=== PATIENT | male | born 1990 | race Caucasian/White ===

== ENCOUNTER 2023-04-20 22:11 | Emergency (ER) | payer BC, SELFPAY ==
[2023-04-20 22:16] VITALS: BP 149/98; PULSE 99; RESP 18; TEMP 36.6; O2SAT 100; BMI 37.1
[2023-04-20 22:30] VITALS: O2SAT 97
--- NOTE | 2023-04-20 22:35 | ED_ITS ---
HPI - Back Pain/Injury General Chief Complaint: Back Injury/Pain Stated Complaint: lower back pain, spasms Time Seen by Provider: 04/20/23 22:12 History of Present Illness HPI Narrative: This 32-year-old male comes in with pain in his mid to low back. He states that he has pain in this area for the past couple weeks and does not report any particular strenuous activity or injury event. However he has been doing some weightlifting and though there was no particular event it may have triggered some muscle spasm in his back. He has seen a chiropractor and is currently taking diclofenac and Flexeril. Today he was sitting on the toilet when he began to have severe spasms in this area. He does not report any pain radiating down either leg. Related Data Home Medications Medication Instructions Recorded Confirmed cyclobenzaprine 5 mg tablet PO 04/20/23 diclofenac sodium 75 mg 75 mg PO BID PRN 04/20/23 04/20/23 tablet,delayed release pantoprazole 20 mg tablet,delayed 20 mg PO 04/20/23 release sertraline 50 mg tablet 50 mg PO DAILY 04/20/23 04/20/23 Allergies Allergy/AdvReac Type Severity Reaction Status Date / Time cefaclor [From [facility]] AdvReac Mild Hives Verified 04/20/23 22:19 Review of Systems Status of ROS: Reports: 10 or more systems reviewed and unremarkable except as noted in History and below Narrative: Constitutional: No fevers, no weight gain or loss. Eyes: No discharge. No vision changes. HENT: No congestion, no sore throat, no ear pain. Cardiovascular: No chest pain, no palpitations. Respiratory: No shortness of breath, no wheezes, no cough. Gastrointestinal: No abdominal pain, no vomiting, no diarrhea. Genitourinary: No dysuria, no hematuria. Musculoskeletal: Mid to low back spasms. Skin: No rashes, no pruritis. Neurological: No dizziness, weakness, sensory change, speech change. Endo/Heme/Allergies: No bruising or bleeding. No polydipsia. Pysch: no suicidality, no anxiety, no insomnia. All other systems reviewed and are negative. [facility] Medical History (Updated 04/20/23 @ 22:42 by Addy James MD) ADONIS (obstructive sleep apnea) ?G47.33 - Obstructive sleep apnea (adult) (pediatric) (ICD-10) Depression ?F32.A - Depression, unspecified (ICD-10) Social History Smoking Status: Former smoker How often do you have a drink containing alcohol: never AUDIT-C Alcohol total score: 0 Non-prescribed substance use: denies use Exam Narrative: Exam Narrative: Constitutional: Well-developed, well-nourished, no acute distress. HEENT: Normocephalic, atraumatic. Neck: Normal range of motion. Nontender. Supple. Heart: Regular. No murmurs. Normal rate. Intact distal pulses. Lungs: Clear to auscultation. No chest discomfort. No wheezes, rhonchi, or rales. Abdomen: Normal bowel sounds. Nontender. No rebound tenderness. Genitalia: Deferred. Back: The patient has frequent spasms of intense pain in his mid to low back. Extremities: Normal range of motion. No injury. Skin: Intact. No rash. Warm. No erythema or pallor. Neurologic: No altered sensation. No weakness. Alert and oriented. Psychiatric: No suicidality. No anxiety or depression. No insomnia. Nursing notes and vitals signs are reviewed. Const: Vital Signs, click to edit/add: Vital Signs - 24 hr 04/20/23 22:16 Temperature 97.8 F Pulse Rate [Pulse Oximeter] 99 Respiratory Rate 18 Blood Pressure [Ri ght Upper Arm] 149/98 H Pulse Oximetry 100 Oxygen Delivery Me thod Room Air Course Vital Signs Vital signs: Initial Vital Signs Temperature 97.8 F 04/20/23 22:16 Temperature Source Temporal Artery Scan 04/20/23 22:16 Pulse Rate 99 04/20/23 22:16 Respiratory Rate 18 04/20/23 22:16 Blood Pressure 149/98 H 04/20/23 22:16 Blood Pressure Mean 115 H 04/20/23 22:16 Blood Pressure Position Sitting 04/20/23 22:16 Pulse Oximetry 100 04/20/23 22:16 Oxygen Delivery Method Room Air 04/20/23 22:16 Vital Signs Temperature 97.8 F 04/20/23 22:16 Pulse Rate 99 04/20/23 22:16 Respiratory Rate 18 04/20/23 22:16 Blood Pressure 149/98 H 04/20/23 22:16 Pulse Oximetry 100 04/20/23 22:16 Oxygen Delivery Method Room Air 04/20/23 22:16 Temperature 97.8 F 04/20/23 22:16 Pulse Rate 99 04/20/23 22:16 Respiratory Rate 18 04/20/23 22:16 Blood Pressure 149/98 H 04/20/23 22:16 Pulse Oximetry 100 04/20/23 22:16 Oxygen Delivery Method Room Air 04/20/23 22:16 MDM - Back Pain/Injury MDM Narrative Medical decision making narrative: This patient comes in with back spasms causing him to his shout out in pain. He did not have any recent injury event or strenuous activity that would necessitate imaging studies. This patient is seeing a chiropractor and is going to physical therapy. He does not have pain radiating down either leg and is not suspicious of a radiculopathy. Most likely this is muscle spasm. Patient did receive an intramuscular injection of morphine. I did provide [facility] prescriptions for Toradol, Flexeril, and a few tablets of [place]. Discharge Plan Discharge Clinical Impression: Strain of lumbar region Patient Disposition: Home, Self-Care Condition: Stable Additional Instructions: Take medication as needed and directed. Follow up with MD or return if worsening. Prescriptions: No Action pantoprazole 20 mg tablet,delayed release (DR/EC) 20 mg PO diclofenac sodium 75 mg tablet,delayed release (DR/EC) 75 mg PO BID PRN sertraline 50 mg tablet 50 mg PO DAILY cyclobenzaprine 5 mg tablet PO Follow Up/Referrals: Provider,Not a Local [Primary Care Provider] - Stand Alone Forms: [employer] Info Instructions
[2023-04-20] MEDS: MORPHINE 10 MG/ML inj IM (22:45)
[2023-04-20 22:55] VITALS: BP 135/84; PULSE 94; RESP 18; TEMP 36.7; O2SAT 100
[2023-04-20 23:09] VITALS: BP 135/84; PULSE 94; RESP 18; TEMP 36.7
== END 2023-04-20 23:20 | disposition home or self-care (01) ==
LOC: ED 22:53
PROVIDERS: Emergency Provider Emergency Medicine Emergency Medical Services
DX: S39.012A Strain of muscle, fascia and tendon of lower back, initial encounter (principal)
CPT/HCPCS: 94761; 96372; 99283; 99284; J2270